=== PATIENT | female | born 1935 | race Caucasian/White ===

== ENCOUNTER 2023-01-12 04:58 | Day surgery (SDC) | payer OTHER, MEDICARE ==
[2023-01-09 09:21] VITALS: BMI 19.9
[~2023-01-12 04:58] MED LIST: BUPIVACAINE HCL/PF 0.5% (5MG/ML) 10 ML VIAL IJ ONE
[2023-01-12 06:28] VITALS: RESP 18
[2023-01-12] MEDS ORDERED: LIDOCAINE HCL 1%, 10 MG/ML (20ML VIAL) ONE (07:17)
[2023-01-12] MEDS ORDERED: BUPIVACAINE HCL/PF 0.5% (5MG/ML) 10 ML VIAL ONE (07:17)
[2023-01-12] MEDS ORDERED: FENTANYL CITRATE/PF 50 MCG/ML VIAL ONE (07:36)
[2023-01-12] MEDS ORDERED: MIDAZOLAM HCL 2 MG/2 ML SINGLE DOSE VIAL ONE (07:36)
[2023-01-12] MEDS ORDERED: PROPOFOL 80 ML ONE (07:36)
[2023-01-12] MEDS ORDERED: ceFAZolin SODIUM 1 GM VIAL IVPB ONE (08:15)
[2023-01-12] MEDS ORDERED: LIDOCAINE HCL 1%, 10 MG/ML (20ML VIAL) INF ONE (08:25)
[2023-01-12] MEDS ORDERED: BUPIVACAINE HCL/PF 0.5% (5MG/ML) 10 ML VIAL IJ ONE (08:25)
[2023-01-12] MEDS ORDERED: ONDANSETRON 4 MG/2 ML VIAL IVPUSH PRN (09:25)
[2023-01-12] MEDS ORDERED: oxyCODONE HCL 5 MG TABLET PO PRN (09:25)
[2023-01-12] MEDS ORDERED: ACETAMINOPHEN 500 MG TABLET (FP) PO PRN (09:25)
[2023-01-12] MEDS ORDERED: IBUPROFEN 800 MG/8 ML IJ IVPB PRN (09:25)
[2023-01-12] MEDS ORDERED: LACTATED RINGERS SOLUTION 1,000 ML IV SCH (09:30)
[2023-01-12 12:55] VITALS: BP 129/81; PULSE 67; TEMP 97.7
== END 2023-01-12 11:20 | disposition home or self-care (01) ==
LOC: JASU-SURG 04:58
PROVIDERS: ATTEND Orthopaedic Surgery
PROC: 01N50ZZ Release Median Nerve, Open Approach (ICD-10-PCS; principal; 2023-01-12 08:00)
PROC: 0LN70ZZ Release Right Hand Tendon, Open Approach (ICD-10-PCS; 2023-01-12 08:00)
DX: G56.01 Carpal tunnel syndrome, right upper limb (principal); M65.341 Trigger finger, right ring finger; D21.11 Benign neoplasm of connective and other soft tissue of right upper limb, including shoulder
CPT/HCPCS: 88304-TC